=== PATIENT | male | born 1990 | race Caucasian/White ===

== ENCOUNTER → 2021-08-03 | Outpatient (CLI) | payer BC | LOC: KOH-I 08:00 | DX: J98.4 Other disorders of lung (principal); J84.10 Pulmonary fibrosis, unspecified; R05.9 Cough, unspecified; R91.1 Solitary pulmonary nodule | CPT/HCPCS: 71250 ==

== ENCOUNTER → 2021-09-28 | Outpatient (CLI) | payer BC | LOC: HEART 5 09:52 | DX: R05.9 Cough, unspecified (principal) | CPT/HCPCS: 94010; 94728; 94729 ==

== ENCOUNTER → 2021-11-09 | Outpatient (CLI) | payer BC | LOC: HEART 5 14:00 | DX: R05.9 Cough, unspecified (principal) | CPT/HCPCS: 94060 ==